=== PATIENT | female | born 1995 | race African-American/Black ===

== ENCOUNTER → 2023-01-06 | Outpatient (CLI) | payer OTHER ==
--- NOTE | 2023-01-07 09:27 | MR ---
EXAMINATION TYPE: MR brain wo con DATE OF EXAM: 01/06/2023 8:58 AM COMPARISON: None. CLINICAL INDICATION:Female, 27 years old with history of R51.9; MIGRAINES, HISTORY OF THYROID CA TECHNIQUE: Multi planar, multi sequence imaging was performed through the brain including: T1, T2, In version recovery, Diffusion weighted imaging, and gradient echo imaging. No gadolinium was given. FINDINGS: The franco-white junctions, ventricular system, and cisterns appear unremarkable. Midline structures sh ow no abnormality. Diffusion-weighted imaging shows no evidence of restricted diffusion. The suscepti bility weighted images do not reveal any evidence for micro-hemorrhage. The bone marrow signal is within normal limits. Paranasal sinuses and mastoid air cells: No significant paranasal sinus disease. Visualized orbits: Orbital contents are intact. IMPRESSION: No evidence of intracranial mass or acute/subacute infarct.
== END | disposition home or self-care (01) ==
LOC: RADMRIMAIN 08:15 → MERGE 08:15
PROVIDERS: ATTEND Family Medicine
DX: G44.091 Other trigeminal autonomic cephalgias (TAC), intractable (principal); Z85.850 Personal history of malignant neoplasm of thyroid
CPT/HCPCS: 70551